=== PATIENT | male | born 1950 | race Two or more races ===

== ENCOUNTER 2017-01-11 18:32 | Emergency (ER) | payer BC ==
[~2017-01-11] VITALS: Ht 177.8 cm; Wt 112.5 kg
[2017-01-11 21:08] VITALS: BP 143/92
== END 2017-01-11 21:08 | disposition home or self-care (01) ==
LOC: ED 18:32
DX: S63.601A Unspecified sprain of right thumb, initial encounter (principal); I10 Essential (primary) hypertension; X58.XXXA Exposure to other specified factors, initial encounter; Y93.89 Activity, other specified; Y99.8 Other external cause status; Y92.89 Other specified places as the place of occurrence of the external cause
CPT/HCPCS: J1885